=== PATIENT | male | born 1940 | race Caucasian/White ===

== ENCOUNTER 2018-09-19 12:55 | Emergency (ER) | payer OTHER, MEDICARE ==
[~2018-09-19] VITALS: Ht 188 cm; Wt 85.5 kg
[2018-09-19 14:25] LABS: BASO # 0.1 10^3/uL (0.0-0.2); BASO % 0.8 % (0.0-1.0); EOS % 0.6 % (0.0-3.0); HEMATOCRIT 40.7 % (42.0-52.0); HEMOGLOBIN 13.6 g/dl (13.5-17.5); LYMPH # 1.1 10^3/uL (1.5-4.5); LYMPH % 17.7 % (24.0-44.0); MEAN CORPUSCULAR HEMOGLOBIN 31.9 pg (27.0-33.0); MEAN CORPUSCULAR HGB CONC 33.4 g/dl (32.0-36.5); MEAN CORPUSCULAR VOLUME 95.5 fl (80.0-96.0); MONO # 1.2 10^3/uL (0.0-0.8); MONO % 19.6 % (0.0-5.0); NEUTROPHILS # 3.9 10^3/uL (1.8-7.7); NEUTROPHILS % 61.1 % (36.0-66.0); PLATELET COUNT, AUTOMATED 298 10^3/uL (150-450); RED BLOOD COUNT 4.26 10^6/uL (4.30-6.10); WHITE BLOOD COUNT 6.3 10^3/uL (4.0-10.0)
[2018-09-19 14:50] LABS: CALCIUM LEVEL 8.3 MG/DL (8.8-10.2); CREATININE FOR GFR 1.65 MG/DL (0.70-1.30); GLOMERULAR FILTRATION RATE 43.1 (>42); POTASSIUM SERUM 4.4 MEQ/L (3.5-5.1)
[2018-09-19 15:11] VITALS: BP 157/75
--- NOTE | 2018-09-20 09:33 | REP ---
Left knee series: Four views. History: Pain after a fall. Findings: Four views of the left knee demonstrate minimal tibiofemoral spurring. There is patellofemoral narrowing and spur formation as well. There is no evidence of fracture or subluxation. No sunrise view is included. Impression: Mild osteoarthritis. No fracture or other acute bony abnormality. Electronically Signed by Homero Gutierrez MD 09/19/2018 02:14 P
--- NOTE | 2018-09-20 09:33 | REP ---
Pelvis right hip: Three views. History: Right hip pain after fall. Findings: AP and frog-leg views of the right hip are obtained along with a AP pelvis. The bony pelvic ring is intact. No hip fracture is seen on either side. Femoral heads are smooth and rounded. Hip joint spaces are preserved. No sacral fracture is seen. Periarticular soft tissues are unremarkable. Impression: Negative pelvis right hip radiographs. Electronically Signed by Homero Gutierrez MD 09/19/2018 02:12 P
--- NOTE | 2018-09-20 10:16 | REP ---
CT BRAIN WITHOUT CONTRAST: HISTORY: Injury in a fall. No comparison study. 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 Bone window settings show no evidence of skull fracture or bony calvarial destructive lesion. 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 Visualized paranasal sinuses are clear. No scalp hematoma is appreciated. On soft tissue window settings, there is moderate diffuse cerebral atrophy. There is no evidence of intracranial hemorrhage. No infarct, mass, extra-axial fluid collection, or midline shift is observed. IMPRESSION: Diffuse moderate cerebral atrophy. Vascular calcification. Otherwise negative. Electronically Signed by Homero Gutierrez MD 09/20/2018 10:28 A
== END 2018-09-19 15:14 | disposition home or self-care (01) ==
LOC: M ED 12:55
DX: M25.551 Pain in right hip (principal); M17.12 Unilateral primary osteoarthritis, left knee; E83.52 Hypercalcemia; N18.9 Chronic kidney disease, unspecified; D64.9 Anemia, unspecified; R05 Cough; G31.9 Degenerative disease of nervous system, unspecified; I70.90 Unspecified atherosclerosis; I69.398 Other sequelae of cerebral infarction; Z98.890 Other specified postprocedural states; Z88.8 Allergy status to other drugs, medicaments and biological substances

== ENCOUNTER → 2020-05-14 | Outpatient (REF) | payer MEDICARE, OTHER | LOC: EEVIPCON 13:12 → M SFHCPLAZ 13:12 | PROVIDERS: ATTEND Physician Assistant | DX: R50.9 Fever, unspecified (principal) ==

== ENCOUNTER → 2021-07-01 | Outpatient (CLI) | payer MEDICARE, OTHER | LOC: M PLAIMG 10:11 | PROVIDERS: ATTEND Student in an Organized Health Care Education/Training Program | DX: M85.88 Other specified disorders of bone density and structure, other site (principal); R53.1 Weakness ==

== ENCOUNTER → 2022-01-08 | Outpatient (CLI) | payer MEDICARE, OTHER | LOC: M RAD 07:47 | PROVIDERS: ATTEND Student in an Organized Health Care Education/Training Program | DX: I15.9 Secondary hypertension, unspecified (principal) ==

== ENCOUNTER → 2022-12-22 | Outpatient (CLI) | payer MEDICARE, OTHER ==
[2022-12-22 08:27] LABS: BASO # 0.1 10^3/uL (0.0-0.2); BASO % 0.9 % (0.0-1.0); EOS # 0.4 10^3/uL (0.0-0.5); EOS % 6.6 % (0.0-3.0); HEMATOCRIT 42.7 % (42.0-52.0); HEMOGLOBIN 13.8 g/dl (13.5-17.5); LYMPH # 1.5 10^3/uL (1.5-5.0); LYMPH % 26.5 % (24.0-44.0); MEAN CORPUSCULAR HEMOGLOBIN 31.4 pg (27.0-33.0); MEAN CORPUSCULAR HGB CONC 32.3 g/dl (32.0-36.5); MEAN CORPUSCULAR VOLUME 97.3 fl (80.0-96.0); MONO # 0.7 10^3/uL (0.0-0.8); MONO % 12.8 % (2.0-8.0); NEUTROPHILS # 2.9 10^3/uL (1.5-8.5); PLATELET COUNT, AUTOMATED 609 10^3/uL (150-450); RED BLOOD COUNT 4.39 10^6/uL (4.30-6.10); WHITE BLOOD COUNT 5.5 10^3/uL (4.0-10.0)
== END ==
LOC: M LAB 07:53
PROVIDERS: ATTEND Student in an Organized Health Care Education/Training Program
DX: E87.5 Hyperkalemia (principal); D75.839 Thrombocytosis, unspecified

== ENCOUNTER → 2023-02-26 | Outpatient (CLI) | payer MEDICARE, OTHER ==
[~2023-02-26] MED LIST: AMLO2.5T3; BAYE325T12 PO; D3 H10002 PO; GASTROGRAFIN SOLUTION 30ML As Ordered ONE; OMEP40CA5; ROSU5TAB5; VITMTA PO
== END ==
LOC: M RAD 14:52
PROVIDERS: ATTEND Specialist
DX: D69.6 Thrombocytopenia, unspecified (principal); R59.1 Generalized enlarged lymph nodes; K80.20 Calculus of gallbladder without cholecystitis without obstruction
CPT/HCPCS: 70490; 71250; 74176; Q9963

== ENCOUNTER → 2023-03-30 | Outpatient (CLI) | payer MEDICARE, OTHER ==
[~2023-03-30] MED LIST changes: +FERR324T21 PO; -GASTROGRAFIN SOLUTION 30ML As Ordered ONE; +LIDOCAINE 1% MDV 20ML VIAL As Ordered ONE
[2023-03-30 12:25] VITALS: TEMP 98.2
[2023-03-30 12:55] VITALS: BP 196/92; O2SAT 97
== END ==
LOC: M IRPRO 12:08
PROVIDERS: ATTEND Internal Medicine Hematology & Oncology
DX: D75.839 Thrombocytosis, unspecified (principal)

== ENCOUNTER → 2023-04-02 | Day surgery (SDC) | payer MEDICARE, OTHER ==
[~2023-04-02] VITALS: Ht 188 cm; Wt 83.5 kg
[~2023-04-02] MED LIST changes: -LIDOCAINE 1% MDV 20ML VIAL As Ordered ONE; +LIDOCAINE 2% 100MG/5ML SDV (FOR ANES.) As Ordered ONE; +NS 1,000 ML IV ONE; +propofoL 200 MG/20 ML VIAL As Ordered ONE
[2023-04-02 10:09] VITALS: TEMP 96.5
[2023-04-02 10:29] VITALS: BP 147/76; O2SAT 98
== END | disposition home or self-care (01) ==
LOC: M OPP 08:41
PROVIDERS: ATTEND Surgery
DX: K44.9 Diaphragmatic hernia without obstruction or gangrene (principal); K22.4 Dyskinesia of esophagus; K31.89 Other diseases of stomach and duodenum; I10 Essential (primary) hypertension; E78.5 Hyperlipidemia, unspecified; K21.9 Gastro-esophageal reflux disease without esophagitis; Z85.46 Personal history of malignant neoplasm of prostate; Z88.8 Allergy status to other drugs, medicaments and biological substances; Z79.82 Long term (current) use of aspirin; Z79.899 Other long term (current) drug therapy

== ENCOUNTER 2023-04-29 08:04 | Day surgery (SDC) | payer MEDICARE, OTHER ==
[~2023-04-29] VITALS: Ht 188 cm; Wt 82.4 kg
[~2023-04-29 08:04] MED LIST changes: -AMLO2.5T3; +AMLO2.5T3 PO; +FERR32TA PO; -LIDOCAINE 2% 100MG/5ML SDV (FOR ANES.) As Ordered ONE; -OMEP40CA5; +OMEP40CA5 PO; -ROSU5TAB5; +ROSU5TAB5 PO; -propofoL 200 MG/20 ML VIAL As Ordered ONE
[2023-04-29] MEDS ORDERED: propofoL 200 MG/20 ML VIAL As Ordered ONE ×2 (08:47→09:35)
[2023-04-29] MEDS ORDERED: LIDOCAINE 2% 100MG/5ML SDV (FOR ANES.) As Ordered ONE (08:48)
[2023-04-29 10:37] VITALS: BP 134/80; TEMP 96.1; O2SAT 98
== END 2023-04-29 10:43 | disposition home or self-care (01) ==
LOC: M OPP 08:04
PROVIDERS: ATTEND Surgery
DX: D50.9 Iron deficiency anemia, unspecified (principal); K57.30 Diverticulosis of large intestine without perforation or abscess without bleeding; K21.9 Gastro-esophageal reflux disease without esophagitis; I10 Essential (primary) hypertension; E78.00 Pure hypercholesterolemia, unspecified; Z79.899 Other long term (current) drug therapy; Z85.46 Personal history of malignant neoplasm of prostate; Z86.73 Personal history of transient ischemic attack (TIA), and cerebral infarction without residual deficits; Z87.891 Personal history of nicotine dependence

== ENCOUNTER 2023-09-24 18:47 | Emergency (ER) | payer MEDICARE, OTHER ==
[~2023-09-24] VITALS: Ht 185.4 cm; Wt 90.0 kg
[~2023-09-24 18:47] MED LIST changes: +ASPI81CH33 PO; -NS 1,000 ML IV ONE
[2023-09-24 19:30] LABS: HEMATOCRIT 38.3 % (42.0-52.0); HEMOGLOBIN 13.1 g/dl (13.5-17.5); MEAN CORPUSCULAR HEMOGLOBIN 32.6 pg (27.0-33.0); MEAN CORPUSCULAR HGB CONC 34.2 g/dl (32.0-36.5); MEAN CORPUSCULAR VOLUME 95.3 fl (80.0-96.0); RED BLOOD COUNT 4.02 10^6/uL (4.30-6.10)
[2023-09-24] MEDS: NS 1,000 ML IV SCH ×2 (19:30→20:03)
[2023-09-24 19:31] LABS: PLATELET COUNT, AUTOMATED 685 10^3/uL (150-450); WHITE BLOOD COUNT 21.9 10^3/uL (4.0-10.0)
[2023-09-24 19:46] LABS: CK-MB VALUE MASS < 1.0 NG/ML (<3.6); LIPASE 116 U/L (12-53)
[2023-09-24 19:48] LABS: ALBUMIN 2.8 G/DL (3.2-5.2); ALKALINE PHOSPHATASE 479 U/L (46-116); ALT/SGPT 203 U/L (7.0-40); AST/SGOT 133 U/L (<34); BILIRUBIN,DIRECT 3.1 MG/DL (<0.4); BLOOD UREA NITROGEN 28 MG/DL (9-23); CALCIUM LEVEL 8.9 MG/DL (8.3-10.6); CARBON DIOXIDE LEVEL 24 MMOL/L (20-31); CHLORIDE LEVEL 102 MMOL/L (98-107); CREATININE FOR GFR 1.37 MG/DL (0.70-1.30); GLOMERULAR FILTRATION RATE 52.7 (>35); GLUCOSE, FASTING 103 MG/DL (74-106); POTASSIUM SERUM 4.2 MMOL/L (3.5-5.1); SODIUM LEVEL 137 MMOL/L (136-145); TOTAL PROTEIN 7.3 G/DL (5.7-8.2)
[2023-09-24 19:49] LABS: CPK CREATINE PHOSPHOKINASE 74 U/L (46-171); MB/CK RELATIVE INDEX 1.35 (< OR =4)
[2023-09-24 19:58] LABS: LYMPHOCYTES 6 % (16-44); MONOCYTES 1 % (0-5); NEUTROPHILS 93 % (28-66); PLATELET ESTIMATE INCREASED (NORMAL)
[2023-09-24] MEDS ORDERED: ISOVUE-370 76% 100ML VIAL As Ordered ONE (20:01)
[2023-09-24] MEDS: ACETAMINOPHEN TAB 650MG DOSE (2X325MG) PO ONE (20:02)
[2023-09-24] MEDS: PIPERACILLIN/TAZOBACTAM SOD 4.5 GM in D5W MINI-BAG PLUS 50 ML IV ONE (20:03)
[2023-09-24] MEDS ORDERED: GASTROGRAFIN SOLUTION 30ML PO SCH (20:30)
[2023-09-24 21:26] LABS: INR 1.25; PROTHROMBIN TIME 15.3 SECONDS (12.5-14.5)
[2023-09-24] MEDS: IBUPROFEN 600MG TAB PO ONE (21:31)
[2023-09-24] MEDS: NS 500 ML IV ONE (23:19)
[2023-09-25 00:25] VITALS: BP 104/59; TEMP 99; O2SAT 97
== END 2023-09-25 00:26 | disposition short-term general hospital (02) ==
LOC: M ED 18:47 → EDBD 18:47 → M ED 09-25 00:26
DX: A41.9 Sepsis, unspecified organism (principal); K83.09 Other cholangitis; R17 Unspecified jaundice; I50.22 Chronic systolic (congestive) heart failure; K21.9 Gastro-esophageal reflux disease without esophagitis; E78.5 Hyperlipidemia, unspecified; Z87.891 Personal history of nicotine dependence; Z88.8 Allergy status to other drugs, medicaments and biological substances; Z79.1 Long term (current) use of non-steroidal anti-inflammatories (NSAID); Z79.810 Long term (current) use of selective estrogen receptor modulators (SERMs); Z79.899 Other long term (current) drug therapy
CPT/HCPCS: 36415; 71045; 74177; 80048; 80076; 81000; 81015; 82550; 82553; 83605; 83690; 84484; 85025; 85610; 87040; 87077; 87086; 87186; 87486; 87581; 87633; 87798; 93005; 93041; 96361; 96365; 96366; 99285; J2543; Q9967

== ENCOUNTER 2023-10-14 13:06 | Emergency (ER) | payer MEDICARE, OTHER ==
[~2023-10-14] VITALS: Ht 190.5 cm; Wt 78.0 kg
[~2023-10-14 13:06] MED LIST changes: +ROSU5TAB40 PO; -ROSU5TAB5 PO
[2023-10-14 13:49] LABS: BASO # 0.1 10^3/uL (0.0-0.2); BASO % 0.5 % (0.0-1.0); EOS # 0.1 10^3/uL (0.0-0.5); EOS % 0.9 % (0.0-3.0); HEMATOCRIT 31.7 % (42.0-52.0); HEMOGLOBIN 10.8 g/dl (13.5-17.5); LYMPH # 1.6 10^3/uL (1.5-5.0); LYMPH % 13.1 % (24.0-44.0); MEAN CORPUSCULAR HEMOGLOBIN 32.9 pg (27.0-33.0); MEAN CORPUSCULAR HGB CONC 34.1 g/dl (32.0-36.5); MEAN CORPUSCULAR VOLUME 96.6 fl (80.0-96.0); MONO # 1.7 10^3/uL (0.0-0.8); MONO % 13.5 % (2.0-8.0); NEUTROPHILS # 8.8 10^3/uL (1.5-8.5); NEUTROPHILS % 71.4 % (36.0-66.0); PLATELET COUNT, AUTOMATED 781 10^3/uL (150-450); RED BLOOD COUNT 3.28 10^6/uL (4.30-6.10); WHITE BLOOD COUNT 12.3 10^3/uL (4.0-10.0)
[2023-10-14 14:10] LABS: ALBUMIN 2.2 G/DL (3.2-5.2); BILIRUBIN,TOTAL 0.7 MG/DL (0.3-1.2); CREATININE FOR GFR 1.28 MG/DL (0.70-1.30); GLOMERULAR FILTRATION RATE 56.9 (>35); POTASSIUM SERUM 4.6 MMOL/L (3.5-5.1); TOTAL PROTEIN 6.5 G/DL (5.7-8.2)
[2023-10-14] MEDS: NS 1,000 ML IV ONE (15:00)
[2023-10-14] MEDS ORDERED: ISOVUE-370 76% 100ML VIAL As Ordered ONE (15:20)
[2023-10-14] MEDS: PIPERACILLIN/TAZOBACTAM SOD 3.375 GM in D5W MINI-BAG PLUS 50 ML IV ONE (17:35)
[2023-10-14] MEDS: ACETAMINOPHEN TAB 650MG DOSE (2X325MG) PO ONE (18:56)
[2023-10-14 23:09] VITALS: BP 118/66; TEMP 99; O2SAT 98
== END 2023-10-14 23:35 | disposition short-term general hospital (02) ==
LOC: M ED 13:06
DX: K68.11 Postprocedural retroperitoneal abscess (principal); K86.89 Other specified diseases of pancreas; I10 Essential (primary) hypertension; D75.839 Thrombocytosis, unspecified; Z86.73 Personal history of transient ischemic attack (TIA), and cerebral infarction without residual deficits; Z88.8 Allergy status to other drugs, medicaments and biological substances; Z90.49 Acquired absence of other specified parts of digestive tract; Z79.02 Long term (current) use of antithrombotics/antiplatelets; Z79.82 Long term (current) use of aspirin; Z79.899 Other long term (current) drug therapy
CPT/HCPCS: 71046; 74177; 76705; 80053; 83605; 83690; 85025; 87040; 87486; 87581; 87633; 87798; 96365; 96366; 99284; J2543; Q9967

== ENCOUNTER → 2024-03-16 | Outpatient (CLI) | payer MEDICARE, OTHER ==
[~2024-03-16] MED LIST changes: +META28.32 PO; +MM S100C PO; +PROC5TAB57 PO
== END ==
LOC: M RAD 12:19
PROVIDERS: ATTEND Student in an Organized Health Care Education/Training Program
DX: K11.8 Other diseases of salivary glands (principal)

== ENCOUNTER → 2024-04-20 | Outpatient (CLI) | payer MEDICARE, OTHER ==
[~2024-04-20] MED LIST changes: +LIDOCAINE 1% MDV 20ML VIAL As Ordered ONE; -ROSU5TAB40 PO; +ROSU5TAB49 PO
[2024-04-20 12:04] VITALS: TEMP 98.4
[2024-04-20 12:34] VITALS: BP 198/86; O2SAT 97
== END ==
LOC: M IRPRO 11:51
PROVIDERS: ATTEND Student in an Organized Health Care Education/Training Program
DX: K11.8 Other diseases of salivary glands (principal)

== ENCOUNTER → 2024-04-28 | Outpatient (REF) | payer MEDICARE, OTHER ==
[~2024-04-28] MED LIST changes: -LIDOCAINE 1% MDV 20ML VIAL As Ordered ONE
== END ==
LOC: M SFHCPLAZ 21:20
PROVIDERS: ATTEND Internal Medicine Hematology
DX: C85.11 Unspecified B-cell lymphoma, lymph nodes of head, face, and neck (principal)

== ENCOUNTER → 2024-04-29 | Outpatient (CLI) | payer MEDICARE, OTHER ==
[2024-04-29 13:55] LABS: BASO # 0.1 10^3/uL (0.0-0.2); BASO % 0.7 % (0.0-1.0); EOS # 0.2 10^3/uL (0.0-0.5); EOS % 3.3 % (0.0-3.0); HEMATOCRIT 34.3 % (42.0-52.0); HEMOGLOBIN 11.2 g/dl (13.5-17.5); LYMPH # 2.3 10^3/uL (1.5-5.0); LYMPH % 31.8 % (24.0-44.0); MEAN CORPUSCULAR HGB CONC 32.7 g/dl (32.0-36.5); MONO # 0.8 10^3/uL (0.0-0.8); MONO % 10.7 % (2.0-8.0); NEUTROPHILS # 3.8 10^3/uL (1.5-8.5); NEUTROPHILS % 53.2 % (36.0-66.0); PLATELET COUNT, AUTOMATED 635 10^3/uL (150-450); RED BLOOD COUNT 3.61 10^6/uL (4.30-6.10); WHITE BLOOD COUNT 7.2 10^3/uL (4.0-10.0)
[2024-04-29 13:56] LABS: LDH LACTATE DEHYDROGENASE 169 U/L (120-246)
[2024-04-29 13:57] LABS: IRON (FE) 81 UG/DL (65-175); PERCENT SATURATION 34.5 % (19.7-50.0); TOTAL IRON BINDING CAPACITY 235 UG/DL (250-425)
[2024-04-29 14:04] LABS: HEPATITIS B SURFACE ANTIBODY NEGATIVE (POSITIVE)
[2024-04-29 14:20] LABS: ALKALINE PHOSPHATASE 215 U/L (40-129); ALT/SGPT 36 U/L (7.0-40); AST/SGOT 21 U/L (<34); BILIRUBIN,TOTAL 0.3 MG/DL (0.3-1.2); BLOOD UREA NITROGEN 30 MG/DL (9-23); CARBON DIOXIDE LEVEL 28 MMOL/L (20-31); CHLORIDE LEVEL 106 MMOL/L (98-107); CREATININE FOR GFR 1.11 MG/DL (0.70-1.30); GLOMERULAR FILTRATION RATE > 60.0 (>35); GLUCOSE, FASTING 85 MG/DL (74-106); POTASSIUM SERUM 4.7 MMOL/L (3.5-5.1); SODIUM LEVEL 142 MMOL/L (136-145); TOTAL PROTEIN 7.3 G/DL (5.7-8.2)
[2024-04-29 14:21] LABS: HEPATITIS B SURFACE ANTIGEN NEGATIVE (NEGATIVE)
[2024-04-29 14:31] LABS: CALCIUM LEVEL 9.6 MG/DL (8.3-10.6); HIV 1&2 SCREEN NEGATIVE (NEGATIVE)
[2024-05-02 13:37] LABS: HCV RNA QUANTITATION <15 NOT DETECTED IU/mL (NOT DETECTED); HCV RNA log10 <1.18 NOT DETECTED Log IU/mL (NOT DETECTED)
== END ==
LOC: M PLALAB 09:47
DX: C85.11 Unspecified B-cell lymphoma, lymph nodes of head, face, and neck (principal); Z11.59 Encounter for screening for other viral diseases

== ENCOUNTER → 2024-06-06 | Outpatient (CLI) | payer MEDICARE, OTHER | LOC: M PLARAD 08:51 | PROVIDERS: ATTEND Internal Medicine Hematology & Oncology | DX: C85.88 Other specified types of non-Hodgkin lymphoma, lymph nodes of multiple sites (principal) | CPT/HCPCS: 78815; A9552 ==

== ENCOUNTER → 2024-09-08 | Outpatient (CLI) | payer MEDICARE, OTHER ==
[~2024-09-08] MED LIST changes: -BAYE325T12 PO; +BAYE325T2 PO
== END ==
LOC: M RAD 10:12
PROVIDERS: ATTEND Specialist
DX: C85.90 Non-Hodgkin lymphoma, unspecified, unspecified site (principal)

== ENCOUNTER → 2025-05-09 | Outpatient (CLI) | payer MEDICARE, OTHER ==
[~2025-05-09] MED LIST changes: +MIDAZOLAM INJ 2 MG/2 ML VIAL IV PRN; -PROC5TAB57 PO; +PROC5TAB81 PO; +ROSU10TA90
[2025-05-09 11:40] VITALS: TEMP 98
[2025-05-09 11:53] LABS: BASO # 0.0 10^3/uL (0.0-0.2); BASO % 0.3 % (0.0-1.0); EOS # 0.1 10^3/uL (0.0-0.5); EOS % 1.8 % (0.0-3.0); LYMPH # 1.2 10^3/uL (1.5-5.0); LYMPH % 18.4 % (24.0-44.0); MONO # 0.6 10^3/uL (0.0-0.8); MONO % 9.6 % (2.0-8.0); NEUTROPHILS # 4.6 10^3/uL (1.5-8.5); NEUTROPHILS % 69.4 % (36.0-66.0); PLATELET COUNT, AUTOMATED 646 10^3/uL (150-450)
[2025-05-09] MEDS: MIDAZOLAM INJ 2 MG/2 ML VIAL IV PRN (13:40)
[2025-05-09] MEDS: NS (Normal Saline) 0.9% 1,000 ML IV SCH (13:40)
[2025-05-09] MEDS: LIDOCAINE 1% MDV 20 ML VIAL SC SCH (14:00)
[2025-05-09 14:10] VITALS: BP 152/68; O2SAT 99
== END ==
LOC: M IRPRO 11:16
PROVIDERS: ATTEND Specialist
DX: D69.6 Thrombocytopenia, unspecified (principal)
CPT/HCPCS: 36415; 38222; 77012; 85025; 88300; 88305; 88311; 88313; J2250